=== PATIENT | female | born 1985 | race Two or more races ===

== ENCOUNTER 2018-03-20 23:37 | Emergency (ER) | payer SELFPAY ==
[~2018-03-20] VITALS: Ht 152.4 cm; Wt 70.0 kg
[2018-03-20 23:40] VITALS: BP 151/91
[2018-03-21] MEDS ORDERED: IBUPROFEN 800 MG TABLET PO ONE (01:00)
[2018-03-21] MEDS ORDERED: ONDANSETRON ODT 4 MG PO ONE (01:00)
[2018-03-21 01:23] LABS: BASOPHILS # (AUTO) 0.02 x10^3/uL (0-0.1); BASOPHILS % (AUTO) 1 % (0-1); EOSINOPHILS # (AUTO) 0.23 x10^3/uL (0-0.4); EOSINOPHILS % (AUTO) 5 % (1-7); LYMPHOCYTES # (AUTO) 0.84 x10^3/uL (1-3.4); LYMPHOCYTES % (AUTO) 18 % (22-44); MD NO; MEAN CORPUSCULAR HEMOGLOBIN 31.1 pg (27.0-34.8); MEAN CORPUSCULAR HGB CONC 34.6 g/dL (32.4-35.8); MEAN PLATELET VOLUME 9.1 fL (7.4-10.4); MONOCYTES # (AUTO) 0.21 x10^3/uL (0.2-0.8); MONOCYTES % (AUTO) 5 % (2-9); NEUTROPHILS # (AUTO) 3.39 x10^3/uL (1.8-6.8); NEUTROPHILS % (AUTO) 72 % (42-75); PLATELET COUNT 264 x10^3/uL (130-400); RED BLOOD COUNT 4.62 x10^6/uL (3.82-5.3); RED CELL DISTRIBUTION WIDTH 13.6 % (9.6-15.2)
[2018-03-21 01:31] LABS: ANION GAP 5 mmol/L (5-15); CALCIUM 9.1 mg/dL (8.5-10.1); CHLORIDE 108 mmol/L (98-107); CREATININE 0.73 mg/dL (0.55-1.02)
[2018-03-21] MEDS ORDERED: IBUPROFEN 800 MG TABLET ONE (01:36)
[2018-03-21] MEDS ORDERED: ONDANSETRON ODT 4 MG ONE (01:36)
== END 2018-03-21 02:34 | disposition home or self-care (01) ==
LOC: ED 23:59
DX: R42 Dizziness and giddiness (principal); R20.2 Paresthesia of skin; F41.1 Generalized anxiety disorder; J45.909 Unspecified asthma, uncomplicated; F17.200 Nicotine dependence, unspecified, uncomplicated
CPT/HCPCS: 36415; 80048; 82040; 84703; 85025; 93005; 99285; Q0162

== ENCOUNTER 2019-02-06 13:43 | Emergency (ER) | payer OTHER ==
[~2019-02-06] VITALS: Ht 152.4 cm; Wt 68.2 kg
[2019-02-06] MEDS ORDERED: ALBUTEROL 0.5%, 20ML ONE (13:46)
[2019-02-06] MEDS ORDERED: ALBUTEROL 0.5%, 20ML NPPBCONT PRN (14:00)
[2019-02-06] MEDS ORDERED: PLEASE ENTER HEIGHT AND WEIGHT MC SCH (14:00)
[2019-02-06] MEDS ORDERED: LORazepam 1MG TABLET PO ONE (14:30)
--- NOTE | 2019-02-06 14:42 | NUR ---
MEDICATED PER EMAR ADMINISTERED PREDNISONE(REFUSED ATIVAN), NEB ALMOST COMPLETE NO EXTERNAL WOB NOTED, RR, 13, POX 100. \ ASKING TO GO HOME. PROVIDER MADE AWARE
[2019-02-06 15:33] VITALS: BP 122/86
== END 2019-02-06 15:35 | disposition home or self-care (01) ==
LOC: ED 15:26
DX: J45.31 Mild persistent asthma with (acute) exacerbation (principal); F41.1 Generalized anxiety disorder; Z90.49 Acquired absence of other specified parts of digestive tract
CPT/HCPCS: 71045; 94644; 99285; J7512

== ENCOUNTER 2020-04-23 10:33 | Emergency (ER) | payer BC, OTHER ==
[~2020-04-23] VITALS: Ht 152.4 cm; Wt 70.0 kg
[2020-04-23 10:37] VITALS: BP 133/87
== END 2020-04-23 13:21 | disposition home or self-care (01) ==
LOC: ED 12:15
DX: S62.034A Nondisplaced fracture of proximal third of navicular [scaphoid] bone of right wrist, initial encounter for closed fracture (principal); J45.909 Unspecified asthma, uncomplicated; Z90.49 Acquired absence of other specified parts of digestive tract; X58.XXXA Exposure to other specified factors, initial encounter; Y93.9 Activity, unspecified; Y92.89 Other specified places as the place of occurrence of the external cause; Y99.8 Other external cause status
CPT/HCPCS: 29125; 99283